=== PATIENT | female | born 1985 | race Caucasian/White ===

== ENCOUNTER 2016-09-07 19:48 | Emergency (ER) | payer OTHER ==
[~2016-09-07] VITALS: Ht 160 cm; Wt 68.4 kg
[~2016-09-07 19:48] MED LIST: ANAPROX DS550 M1 PO; ASPIRIN325 MG PO; BACTRIM,SEPT1 TABLET PO; BUSPAR15 MG PO; CELEBREX200 MG PO; CITALOPRAM HBR10 MG PO; EXALGO16 MG PO; FLEXERIL10 MG PO; HYDROCODON-ACE1 EAC7 PO; LINZESS145 MCG; LOPRESSOR25 MG PO; LORAZEPAM0.5 MG PO; NUCYNTA ER100 MG; OXYCODONE HCL15 MG PO; OXYCODONE HCL30 MG PO; PERCOCET 5/31 TABLET PO; PULMICORT FLE180 MCG IH; ROXICODONE15 MG PO; TIZANIDINE HCL4 MG PO; VALIUM5 MG PO; VENTOLIN HFA18 GM IH; YAZ 28 TABLET1 EACH; ZOFRAN ODT8 MG PO; ZOFRAN4 MG PO
[2016-09-07 20:38] LABS: MCHC 33.5 G/DL (30.0-36.0); MCV 92.7 FL (83-99); MEAN PLAT.VOLUME 8.3 uM^3 (9.5-12.4); PLATELET COUNT 317 K/uL (156-360); RBC DIS.WIDTH-CV 12.4 % (11.8-14.6); RBC DIS.WIDTH-SD 42.5 % (39-53); RED BLOOD COUNT 4.64 M/uL (3.80-5.20); WHITE BLOOD COUNT 8.4 K/uL (4.1-10.2)
[2016-09-07 20:52] LABS: CHLORIDE 104 mEq/L (99-109); D-DIMER ELISA 0.68 mg/L FEU (< 0.57); POTASSIUM 4.1 mEq/L (3.7-5.4); SODIUM 138 mEq/L (136-147)
[2016-09-07 20:53] LABS: GLUCOSE 98 mg/dL (70-99)
[2016-09-07 20:55] LABS: ANION GAP 11 MEQ/L (2-14)
[2016-09-07 20:57] LABS: GFR ESTIMATE (CALCULATED) > 59 mL/min/
[2016-09-07 20:58] LABS: UREA NITROGEN (BUN) 14 mg/dL (9-23)
[2016-09-07 21:05] LABS: TROP-I INTERPRETATION NEGATIVE; TROPONIN-I < 0.01 ng/mL (0.0-0.30)
[2016-09-07 22:03] LABS: ADD MIUA? YES; BILIRUBIN NEGATIVE; BLOOD SMALL; COLOR STRAW ((YELLOW)); GLUCOSE (STRIP) NEGATIVE; KETONES NEGATIVE; LEUKOCYTES NEGATIVE; NITRITE NEGATIVE; PROTEIN (STRIP) NEGATIVE; UROBILINOGEN 0.2 MG/DL (0.2-1.0)
[2016-09-07 22:41] LABS: BACTERIA RARE /HPF; EPITHELIAL CELLS RARE /HPF; MUCUS TRACE /LPF; UCUL ADDED? NO; WHITE BLOOD CELLS 0-5 /HPF (0-5)
[2016-09-08 00:17] LABS: QUANTITATIVE HCG < 4.0 MIU/ML
[2016-09-08 02:48] VITALS: BP 98/74
== END 2016-09-08 02:50 | disposition home or self-care (01) ==
LOC: EME 19:48
DX: R51 Headache (principal); R07.9 Chest pain, unspecified; R00.2 Palpitations; Z86.718 Personal history of other venous thrombosis and embolism; Z96.651 Presence of right artificial knee joint; Z88.0 Allergy status to penicillin; Z91.041 Radiographic dye allergy status
CPT/HCPCS: 70496; 70498; 71020; 71275; 80048; 81003; 84484; 84702; 85027; 85379; 99281; 99285; J1100; J1200; J2930; J7030

== ENCOUNTER 2016-12-29 08:37 | Emergency (ER) | payer OTHER ==
[~2016-12-29] VITALS: Ht 160 cm; Wt 59.6 kg
[2016-12-29 09:08] LABS: HEMATOCRIT 42.6 % (36.0-46.0); MCHC 34.3 G/DL (30.0-36.0); MCV 90.4 FL (83-99); MEAN PLAT.VOLUME 8.4 uM^3 (9.5-12.4); PLATELET COUNT 296 K/uL (156-360); RBC DIS.WIDTH-CV 11.9 % (11.8-14.6); RBC DIS.WIDTH-SD 39.1 % (39-53); RED BLOOD COUNT 4.71 M/uL (3.80-5.20); WHITE BLOOD COUNT 6.3 K/uL (4.1-10.2)
[2016-12-29 09:17] LABS: CHLORIDE 103 mEq/L (99-109); POTASSIUM 3.9 mEq/L (3.7-5.4); SODIUM 139 mEq/L (136-147)
[2016-12-29 09:18] LABS: GLUCOSE 118 mg/dL (70-99)
[2016-12-29 09:20] LABS: ANION GAP 12 MEQ/L (2-14)
[2016-12-29 09:22] LABS: GFR ESTIMATE (CALCULATED) > 59 mL/min/
[2016-12-29 09:23] LABS: UREA NITROGEN (BUN) 8 mg/dL (9-23)
[2016-12-29 09:30] LABS: TROP-I INTERPRETATION NEGATIVE; TROPONIN-I < 0.01 ng/mL (0.0-0.30)
[2016-12-29] MEDS ORDERED: SUBOXONE 8 MG-1 EAC2 SL (10:44)
[2016-12-29 12:30] LABS: ADD MIUA? YES; BILIRUBIN NEGATIVE; BLOOD SMALL; COLOR STRAW ((YELLOW)); GLUCOSE (STRIP) NEGATIVE; KETONES 5; LEUKOCYTES NEGATIVE; NITRITE NEGATIVE; PROTEIN (STRIP) NEGATIVE; SPECIFIC GRAVITY 1.003 (1.000-1.030); UROBILINOGEN 0.2 MG/DL (0.2-1.0)
[2016-12-29 12:47] LABS: BACTERIA 2+ /HPF; EPITHELIAL CELLS RARE /HPF; GRANULAR CASTS 0-5 /LPF; MUCUS NONE SEEN /LPF; RED BLOOD CELLS 0-5 /HPF (0-5); UCUL ADDED? NO; WHITE BLOOD CELLS 0-5 /HPF (0-5)
[2016-12-29 13:52] LABS: TROP-I INTERPRETATION NEGATIVE; TROPONIN-I < 0.01 ng/mL (0.0-0.30)
[2016-12-29 13:55] VITALS: BP 122/75
== END 2016-12-29 14:16 | disposition home or self-care (01) ==
LOC: EME 08:37
PROVIDERS: Nurse Practitioner Family
DX: R07.89 Other chest pain (principal); R00.2 Palpitations; Z79.82 Long term (current) use of aspirin; Z87.891 Personal history of nicotine dependence
CPT/HCPCS: 71020; 80048; 81003; 84484; 85027; 93005; 93971; 99281; 99284

== ENCOUNTER → 2017-01-20 | Outpatient (CLI) | payer OTHER ==
[~2017-01-20] MED LIST changes: +SUBOXONE 8 MG-1 EAC2 SL
== END | disposition home or self-care (01) ==
LOC: NUC 12:23
DX: R07.9 Chest pain, unspecified (principal); R79.89 Other specified abnormal findings of blood chemistry; R06.02 Shortness of breath
CPT/HCPCS: 78582; A9540; A9567